=== PATIENT | female | born 1950 | race Caucasian/White ===

== ENCOUNTER 2021-07-22 09:46 | Emergency (ER) | payer OTHER ==
[~2021-07-22] VITALS: Ht 162.6 cm; Wt 77.1 kg
[2021-07-22 09:46] VITALS: BP_SYST 165
[2021-07-22 11:18] VITALS: BP_SYST 165
== END 2021-07-23 01:19 | disposition home or self-care (01) ==
LOC: SED 09:46
DX: S13.4XXA Sprain of ligaments of cervical spine, initial encounter (principal); S00.83XA Contusion of other part of head, initial encounter; V49.59XA Passenger injured in collision with other motor vehicles in traffic accident, initial encounter; Y93.89 Activity, other specified; Y92.89 Other specified places as the place of occurrence of the external cause; Y99.8 Other external cause status
CPT/HCPCS: 70450-TC; 72125-TC; 76376; 99285